=== PATIENT | female | born 1965 | race Caucasian/White ===

== ENCOUNTER → 2017-10-03 15:06 | Outpatient (CLI) | payer OTHER, SELFPAY ==
--- NOTE | 2017-10-03 | DI.RAD.S_ITS ---
PROCEDURE: XR SOFT TISSUE NECK INDICATIONS: NECK AND RIGHT SHOULDER PAIN TECHNIQUE: 2 views of the neck were acquired. COMPARISON: None. FINDINGS: Airway: The airway appears patent. Soft tissues: Prevertebral soft tissues are normal in thickness. The epiglottis and aryepiglottic folds appear normal. No soft tissue gas. Bones: No suspicious bony lesions. Visualized cervical spine is normally aligned. Loss of lordosis which could be related to muscle spasm, rigidity or simply positional. Mild multilevel mid and lower cervical spine disc degeneration. IMPRESSION: Loss of lordosis and multilevel disc degeneration. Normal soft tissues. Dictated by: Javier MENDOZA Interpreted: Mark Anthony Aguilar MD on 10/03/2017 at 15:45 Approved by: Mark Anthony Aguilar M.D. on 10/03/2017 at 16:08
--- NOTE | 2017-10-03 | DI.RAD.S_ITS ---
PROCEDURE: XR SHOULDER RT MIN 2V INDICATIONS: NECK AND RIGHT SHOULDER PAIN TECHNIQUE: 3 views of the shoulder were acquired. COMPARISON: [facility], CR, XR SOFT TISSUE NECK, 10/03/2017, 15:09. FINDINGS: Bones: No fractures or dislocations. No suspicious bony lesions. Visualized ribs appear intact. Mild joint narrowing with periarticular osteophyte formation of the acromioclavicular joint. Soft tissues: No suspicious soft tissue calcifications. IMPRESSION: Mild acromioclavicular joint degeneration. Dictated by: Javier Hoskins [facility] Interpreted: Mark Anthony Aguilar MD on 10/03/2017 at 15:46 Approved by: Mark Anthony Aguilar M.D. on 10/03/2017 at 16:08
== END ==
PROVIDERS: Visit Provider Family Medicine
DX: M50.320 Other cervical disc degeneration, mid-cervical region, unspecified level (principal); M19.011 Primary osteoarthritis, right shoulder; M25.511 Pain in right shoulder
CPT/HCPCS: 70360; 73030

== ENCOUNTER → 2017-10-25 14:48 | Outpatient (CLI) | payer OTHER, SELFPAY | PROVIDERS: Family Provider Family Medicine; PCP Family Medicine; Visit Provider Family Medicine | DX: R20.0 Anesthesia of skin (principal) | CPT/HCPCS: 95886; 95909 ==

== ENCOUNTER → 2017-11-09 14:54 | Outpatient (CLI) | payer OTHER, SELFPAY ==
--- NOTE | 2017-11-09 | DI.MRI.S_ITS ---
PROCEDURE: MR CERVICAL SPINE WO CON INDICATIONS: RIGHT SIDED NECK AND RIGHT ARM RADICULAR PAIN. RIGHT 4TH,5TH DIGIT NUMBNESS TECHNIQUE: Noncontrast sagittal T1 spin echo and T2 fast spin echo, sagittal STIR, foraminal oblique sagittal T2 fast spin echo, and axial gradient echo or T2 fast spin echo through the cervical spine. COMPARISON: [facility], MR, BILATERAL BREAST WITH CONTRAST, 03/05/2012, 15:07. FINDINGS: Image quality: Excellent. Alignment and Curvature: There is normal bony alignment. Bone Marrow: Marrow demonstrates normal overall signal. Spinal Cord: Visualized spinal cord has normal size and signal. No cerebellar tonsillar herniation. Paraspinous Soft Tissues: No paravertebral masses. Prevertebral soft tissues are normal in thickness. C2-C3: Normal appearance. C3-C4: Mild intervertebral body disc height loss and broad-based posterior disc bulge greatest in the central and left paracentral disc contacting and deforming the spinal cord with a residual AP diameter of 6 mm. Mild left-sided neural foraminal narrowing. The right neural foramen is patent. C4-C5: Mild intervertebral body disc height loss causes mild deformity of the spinal cord. Minimal bilateral neural foraminal narrowing. C5-C6: Moderate intervertebral body disc height loss with broad-based posterior disc bulge which contacts and deforms the central spinal cord. No spinal cord edema. Uncovertebral joint hypertrophy. There is moderate left and mild right neural foraminal narrowing. C6-C7: Moderate intervertebral body disc height loss with broad-based posterior disc bulge. Findings contact and deform the spinal cord with no spinal cord edema. Uncovertebral joint hypertrophy. Mild right and moderate left neural foraminal narrowing. C7-T1: There is T2 bright T1 isointense mass measuring 10 x 5 x 12 mm (se 2 im 4) arising from the right C7-T1 facet joint most consistent with a synovial cyst which exerts mass effect upon the right aspect of the spinal cord and extends into the right foramen partial narrowing it. Degenerative changes cause moderate left neural foraminal narrowing. IMPRESSION: 1. Mass adjacent to the right C7-T1 facet joint most consistent with a synovial cyst extending into the central spinal canal exerting mass effect upon the right aspect of the spinal cord and causing a degree of right-sided neural foraminal narrowing. 2. Multilevel degenerative change with posterior disc bulges contacting and deforming the spinal cord from C3-7. Degenerative changes cause multilevel neural foraminal narrowing moderate in the left C5-T1 foramina. Dictated by: Eulogio Gupta M.D. on 11/09/2017 at 17:21 Approved by: Eulogio Gupta M.D. on 11/09/2017 at 17:32
== END ==
PROVIDERS: PCP Family Medicine; Visit Provider Family Medicine
DX: M50.11 Cervical disc disorder with radiculopathy, high cervical region (principal); M25.511 Pain in right shoulder; R20.0 Anesthesia of skin; M71.38 Other bursal cyst, other site
CPT/HCPCS: 72141

== ENCOUNTER → 2018-03-27 08:15 | Outpatient (CLI) | payer OTHER, SELFPAY ==
--- NOTE | 2018-03-27 | DI.MG.S_ITS ---
BILATERAL DIGITAL SCREENING MAMMOGRAM 3D/2D WITH CAD: 03/27/2018 CLINICAL: Routine screening. Family history of breast cancer. Comparison is made to exams dated: 01/15/2017 mammogram, 10/18/2015 mammogram, and 10/02/2014 mammogram - [facility]. The tissue of both breasts is extremely dense, which lowers the sensitivity of mammography. Current study was also evaluated with a Computer Aided Detection (CAD) system. There are stable benign calcifications in both breasts. There also are benign biopsy clips in the right breast. No significant masses, calcifications, or other findings are seen in either breast. There has been no significant interval change. IMPRESSION: There is no mammographic evidence of malignancy. A 1 year screening mammogram is recommended. This exam was interpreted at Station ID: [id number]. NOTE: For mammograms, a report in lay terms will be sent to the patient. Approximately 15% of breast malignancies will not be visualized mammographically. In the management of a palpable breast mass, a negative mammogram must not discourage biopsy of a clinically suspicious lesion. Electronically Signed By: Hugh ye/minal:03/27/2018 11:18:51 letter sent: Normal Exam ACR BI-RADS Category 2: Benign Finding(s) 3342F
== END ==
PROVIDERS: PCP Family Medicine; Visit Provider Family Medicine
DX: Z12.31 Encounter for screening mammogram for malignant neoplasm of breast (principal); Z80.3 Family history of malignant neoplasm of breast
CPT/HCPCS: 77063; 77067

== ENCOUNTER → 2019-06-11 16:15 | Outpatient (CLI) | payer OTHER, SELFPAY ==
--- NOTE | 2019-06-11 16:16 | DI.MG.S_ITS ---
BILATERAL DIGITAL SCREENING MAMMOGRAM 3D/2D WITH CAD: 06/11/2019 CLINICAL: Routine screening. Family history of breast cancer. Comparison is made to exams dated: 03/27/2018 mammogram, 01/15/2017 mammogram, and 10/18/2015 mammogram - [facility]. The tissue of both breasts is heterogeneously dense. This may lower the sensitivity of mammography. Current study was also evaluated with a Computer Aided Detection (CAD) system. There are benign calcifications in both breasts. There also are biopsy clips in the right breast. No significant masses, calcifications, or other findings are seen in either breast. There has been no significant interval change. IMPRESSION: There is no mammographic evidence of malignancy. A 1 year screening mammogram is recommended. This exam was interpreted at Station ID: [id number]. NOTE: For mammograms, a report in lay terms will be sent to the patient. Approximately 15% of breast malignancies will not be visualized mammographically. In the management of a palpable breast mass, a negative mammogram must not discourage biopsy of a clinically suspicious lesion. Electronically Signed By: Renan redding/minal:06/11/2019 20:03:36 letter sent: Normal Exam ACR BI-RADS Category 2: Benign Finding(s) 3342F
== END ==
PROVIDERS: PCP Family Medicine; Referring Provider Family Medicine; Visit Provider Family Medicine
DX: Z12.31 Encounter for screening mammogram for malignant neoplasm of breast (principal); Z80.3 Family history of malignant neoplasm of breast
CPT/HCPCS: 77063; 77067